=== PATIENT | female | born 1965 | race Hispanic/Latino ===

== ENCOUNTER 2019-11-21 16:36 | Emergency (ER) | payer OTHER, SELFPAY ==
--- NOTE | ~2019-11-21 | XR_ITS ---
EXAMINATION: XR chest 2V DATE: 11/21/2019 17:38 INDICATION: Cough and congestion TECHNIQUE: PA and lateral views of the chest are obtained. COMPARISON: 10/15/2016 FINDINGS: There are minimal airspace opacities of the right lung base. There is no pleural effusion o r pneumothorax. The cardiomediastinal silhouette is normal. There is mild thoracic spondylosis. IMPRESSION: 1. Minimal airspace opacities of the right lung base which could reflect atelectasis versus pneumonia . Reviewed, dictated and finalized at location A. ENT PRESSER IMPRESSION: 1. Minimal airspace opacities of the right lung base which could reflect atelec tasis versus pneumonia.
[2019-11-21 16:42] VITALS: BP 125/93; PULSE 88; RESP 17; TEMP 37.3; O2SAT 100
[2019-11-21 17:10] VITALS: PULSE 83; RESP 20
[2019-11-21] MEDS: IPRATROPIUM BR 0.02% INH SOLN 0.5 MG/2.5 ML VIAL INHALATION (17:10)
[2019-11-21] MEDS: ALBUTEROL SULFATE NEB 2.5 MG/0.5 ML INH 5 MG INHALATION (17:10)
[2019-11-21 17:25] VITALS: PULSE 88; RESP 20
--- NOTE | 2019-11-21 17:37 | ED.GENADULT ---
HPI - General Adult General Chief complaint: Upper Respiratory Infection <SAE Sarabia Last Filed: 11/21/19 19:04> Stated complaint: uri <SAE Sarabia Last Filed: 11/21/19 19:04> Time Seen by Provider: 11/21/19 16:48 <SAE Sarabia Last Filed: 11/21/19 19:04> Source: patient <SAE Sarabia Last Filed: 11/21/19 19:04> Mode of arrival: ambulatory <SAE Sarabia Last Filed: 11/21/19 19:04> Limitations: no limitations <Kevin Montoya PA-C - Last Filed: 11/21/19 19:04> History of Present Illness HPI narrative: Patient is a 54-year-old female who presents to emergency department for evaluation of upper respiratory symptoms noting that she has had congestion rhinorrhea and cough for over a week but last night began to have worsening symptoms with fever chills body aches. Patient notes she has had a couple episode episodes of emesis. Patient denies any diarrhea. Patient has taken [id number] medications with minimal improvement. Patient also notes subjective fever with chills and sweats <SAE Sarabia Last Filed: 11/21/19 19:04> Related Data Allergies/adverse reactions: Allergies Allergy/AdvReac Type Severity Reaction Status Date / Time No Known Allergies Allergy Unknown Verified 02/25/17 06:30 <SAE Sarabia Last Filed: 11/21/19 19:04> Review of Systems Review of Systems: All systems reviewed & are unremarkable except as noted in HPI and below <Kevin Montoya PA-C - Last Filed: 11/21/19 19:04> PMFSH Social History Social History: Social History Gender identity (if verbalized by the patient): Female <SAE Sarabia Last Filed: 11/21/19 19:04> Exam Narrative: Exam Narrative: GENERAL: Ill-appearing, well-nourished, and in no acute distress. HEAD: Normocephalic, atraumatic. EYES: PERRLA and EOMI. ENT: Nares clear, no rhinorrhea or epistaxis. Mucous membranes moist. Oropharynx without tonsillar hypertrophy exudate or other lesions. Bilateral TMs pearly avalos nonbulging NECK: Supple. No adenopathy or masses. No carotid bruits or JVD CHEST: Clear to auscultation. No respiratory distress. No wheezes rales or rhonchi HEART: Regular rate and rhythm. No murmur heard. SKIN: Warm, dry, no rash. NEURO: No focal deficits. Alert and oriented x3. PSYCH: Normal mood and affect. <Kevin Montoya PA-C - Last Filed: 11/21/19 19:04> Course Course Emergency Course: Patient aware of case findings treatment plan and diagnosis in the room in no distress hydrated and given breathing treatment in the emergency department <Kevin Montoya PA-C - Last Filed: 11/21/19 19:04> Vital Signs Vital signs: Vital Signs Temperature 99.2 F 11/21/19 16:42 Pulse Rate 88 11/21/19 16:42 Respiratory Rate 17 11/21/19 16:42 Blood Pressure 125/93 H 11/21/19 16:42 Pulse Oximetry 100 11/21/19 16:42 Temperature 99.2 F 11/21/19 16:42 Pulse Rate 86 11/21/19 19:12 Respiratory Rate 19 11/21/19 19:12 Blood Pressure 122/78 11/21/19 19:12 Pulse Oximetry 98 11/21/19 19:12 <Kevin Montoya PA-C - Last Filed: 11/21/19 19:04> Vital Signs Temperature 99.2 F 11/21/19 16:42 Pulse Rate 88 11/21/19 16:42 Respiratory Rate 17 11/21/19 16:42 Blood Pressure 125/93 H 11/21/19 16:42 Pulse Oximetry 100 11/21/19 16:42 Temperature 99.2 F 11/21/19 16:42 Pulse Rate 86 11/21/19 19:12 Respiratory Rate 19 11/21/19 19:12 Blood Pressure 122/78 11/21/19 19:12 Pulse Oximetry 98 11/21/19 19:12 <Tracy Rodriguez MD - Last Filed: 11/21/19 23:54> Medical Decision Making MDM Narrative Medical decision making narrative: Patient in the room was given updraft treatment with fluids feeling much better at this time afebrile nontoxic-appearing without emesis agreeing to follow-up with primary care felt appropriate for outpatient reev
[2019-11-21] MEDS: SODIUM CHLORIDE 0.9% IV 1,000 ML 999 ML IV CONT (17:52)
[2019-11-21 18:23] LABS: Basophils Percent Auto 0.4 % (0.2-1.2); Eosinophils Absolute Auto 0.1 K/mm3 (0-0.3); Eosinophils Percent Auto 1.4 % (0-4.4); Hematocrit 39.6 % (37.0-47.0); Hemoglobin 12.9 g/dL (12.0-15.0); Immature Granulocyte Absolute 0.02 K/mm3 (0.00-0.031); Immature Granulocyte Percent A 0.2 % (0-0.5); Lymphocytes Absolute Auto 1.71 K/mm3 (0.9-3.2); Lymphocytes Percent Auto 18.2 % (18.3-44.2); Mean Corpuscular HGB Conc 32.6 g/dl (32-36); Mean Corpuscular Hemoglobin 29.9 pg (26-34); Mean Corpuscular Volume 91.7 fl (80-100); Mean Platelet Volume 11.8 fl (7.4-10.4); Monocytes Absolute Auto 1.2 K/mm3 (0.1-0.6); Monocytes Percent Auto 12.5 % (2.6-8.5); Neutrophils Absolute Auto 6.3 K/mm3 (1.3-6.7); Neutrophils Percent Auto 67.3 % (45.5-73.1); Platelet Count Result 203 k/mm3 (150-375); Red Blood Count 4.32 M/mm3 (4.2-5.4); Red Cell Distribution Width 13.1 % (11.5-14.5); White Blood Count 9.4 K/mm3 (4.5-10.0)
[2019-11-21] MEDS: IBUPROFEN IV 800 MG/200 ML 800 MG/200 ML BAG 400 MG IVPB (18:31)
[2019-11-21 18:34] LABS: Blood Urea Nitrogen 17 mg/dL (7-17); Calcium 9.3 mg/dL (8.4-10.2); Carbon Dioxide 20 mmol/L (22-30); Chloride 103 mmol/L (98-107); Estimated CRCL calculation 63 ml/min; Estimated Glomerular Filt Rate > 60; Glucose 134 mg/dL (65-105); Potassium 3.4 mmol/L (3.4-5.0); Sodium 137 mmol/L (137-145)
[2019-11-21 18:47] VITALS: BP 121/72; PULSE 74; RESP 15; O2SAT 98
[2019-11-21 19:12] VITALS: BP 122/78; PULSE 86; RESP 19; O2SAT 98
--- NOTE | 2019-11-28 14:53 | PC.NURSE ---
IV Ibuprofen stop time 1899 on 11/21/2019 IV NS stop time 1914 on 11/21/2019 -Konrad Jones RN
== END 2019-11-21 19:13 | disposition home or self-care (01) ==
PROVIDERS: Emergency Medicine Emergency Medical Services; Emergency Provider General Practice
DX: J10.1 Influenza due to other identified influenza virus with other respiratory manifestations (principal); R91.8 Other nonspecific abnormal finding of lung field
CPT/HCPCS: 36415; 71046; 80048; 85025; 87804; 94640; 96361; 96365; 96375; 99284; J0131; J1741; J7030

== ENCOUNTER 2020-02-13 18:57 | Emergency (ER) | payer OTHER, SELFPAY ==
--- NOTE | ~2020-02-13 | XR_ITS ---
EXAMINATION: XR wrist RT min 3V EXAM DATE: 02/13/2020 19:40 INDICATION: Dog bite, right wrist pain. TECHNIQUE: Right wrist frontal, frontal with ulnar deviation, oblique and lateral projections obtain ed and reviewed. There is no prior study for comparison. FINDINGS: Right wrist scapholunate joint space is maintained. There are no acute fractures or disloca tions identified. There is no subcutaneous gas. The soft tissue is unremarkable. There are no rad iopaque foreign bodies. IMPRESSION: No acute osseous findings. Reviewed, dictated and finalized at location G. IMPRESSION: No acute osseous findings.
[2020-02-13 19:04] VITALS: BP 139/84; PULSE 89; RESP 18; TEMP 37.1; O2SAT 97
--- NOTE | 2020-02-13 19:09 | ED.GENADULT ---
HPI - General Adult General Chief complaint: Animal Bite Stated complaint: dog bite Time Seen by Provider: 02/13/20 19:02 Source: patient Mode of arrival: ambulatory Limitations: no limitations History of Present Illness HPI narrative: Patient is a 54-year-old female who presents for evaluation of dog bite. Bite occurred approximately 30 minutes ago, was her friend's dog. Patient states she was suddenly bit by the dog after they were playing. The dog is otherwise been acting normally and is up-to-date on its vaccinations. Patient is not up-to-date on her tetanus. She reports pain in her right wrist that radiates up into her arm. It is dull and aching in nature. Minimal pain with movement. No pain in the fingers. No current bleeding. Patient is right-hand dominant. Related Data Allergies Allergy/AdvReac Type Severity Reaction Status Date / Time No Known Allergies Allergy Unknown Verified 02/13/20 19:05 Review of Systems Review of Systems: Narrative: CONSTITUTIONAL: Denies fever, chills, or sweats. CARDIOVASCULAR: Denies chest pain RESPIRATORY: Denies cough GASTROINTESTINAL: Denies abdominal pain SKIN: Denies rash MUSCULOSKELETAL: Reports right wrist pain NEUROLOGIC: Denies numbness PMFSH Past Medical History Medical History (Updated 02/13/20 @ 19:13 by Myra Hennessy MD) Hyperlipidemia Hypertension Surgical History Surgical History (Updated 02/13/20 @ 19:11 by Myra Hennessy MD) H/O section Social History Social History Gender identity (if verbalized by the patient): Female Exam Narrative: Exam Narrative: GENERAL: Awake, alert, conversant HEAD: Normocephalic, atraumatic. EYES: PERRLA and EOMI. ENT: Nares clear, no rhinorrhea or epistaxis. Mucous membranes moist. NECK: Supple. CHEST: No respiratory distress, breathing even and non labored HEART: Regular rate, sinus rhythm ABDOMEN:Non distended, non tender EXTREMITIES: Normal range of motion of the right wrist. Minimal tenderness to the medial malleolus of the right wrist without deformity. There is a small puncture wound without any active bleeding. No foreign body identified. Radial pulses 2+. Intact sensation median, ulnar, radial nerve distribution. Interossei strength is 5 out of 5 in the right hand. Full range of motion at the right shoulder, right elbow. No streaking erythema or evidence of cellulitis. SKIN: Warm, dry, no rash. NEURO:No focal deficits. Alert and oriented x3 Course Vital Signs Vital signs: Vital Signs Temperature 37.1 C 02/13/20 19:04 Pulse Rate 89 02/13/20 19:04 Respiratory Rate 18 02/13/20 19:04 Blood Pressure 139/84 02/13/20 19:04 Pulse Oximetry 97 02/13/20 19:04 Temperature 37.1 C 02/13/20 19:04 Pulse Rate 89 02/13/20 19:04 Respiratory Rate 18 02/13/20 19:04 Blood Pressure 139/84 02/13/20 19:04 Pulse Oximetry 97 02/13/20 19:04 Medical Decision Making MDM Narrative Medical decision making narrative: Patient presented with dog puncture wound to right wrist. No through and through laceration. No gaping deformities. No fracture in the wrist. Dog is vaccinated per patient, a domestic dog, thus low risk for rabies, no immunoglobulin is recommended and thus was not administered. Patient's tetanus was updated. She was discharged home on antibiotic, given wound discharge instructions. A bite number was filed with the [facility]. Medical Records Medical records reviewed: Yes I reviewed the patient's medical records. Vital Signs Vital Signs: Vital Signs Temperature 37.1 C 02/13/20 19:04 Pulse Rate 89 02/13/20 19:04 Respiratory Rate 18 02/13/20 19:04 Blood Pressure 139/84 02/13/20 19:04 Pulse Oximetry 97 02/13/20 19:04 Temperature 37.1 C 02/13/20 19:04 Pulse Rate 89 02/13/20 19:04 Respiratory Rate 18 02/13/20 19:04 Blood Pressure 139/84 02/13/20 19:04 Pulse Oximetry 97 02/13/20 19:04 Imaging Data Radiologist's impres
[2020-02-13] MEDS: ACETAMINOPHEN 500 MG TABLET 1000 MG PO (19:34)
[2020-02-13] MEDS: TETANUS,DIPHTHERIA,AC PERTUSSIS ADULT (0.5 ML) BOOSTRIX IM (19:34)
[2020-02-13] MEDS: IBUPROFEN 400 MG TABLET PO (19:35)
[2020-02-13 20:07] VITALS: BP 132/81; PULSE 79; RESP 18; O2SAT 98
== END 2020-02-13 20:08 | disposition home or self-care (01) ==
PROVIDERS: Emergency Provider Emergency Medicine
DX: S61.551A Open bite of right wrist, initial encounter (principal); E78.5 Hyperlipidemia, unspecified; I10 Essential (primary) hypertension; W54.0XXA Bitten by dog, initial encounter; Z23 Encounter for immunization
CPT/HCPCS: 73110; 90471; 90715; 99283; A9270

== ENCOUNTER 2021-04-24 13:51 | Outpatient (CLI) | payer OTHER, SELFPAY ==
--- NOTE | ~2021-04-24 | XR_ITS ---
EXAMINATION: XR knee RT min 4V DATE: 04/24/2021 14:24 INDICATION: Right knee pain TECHNIQUE: Four views of the right knee were obtained. COMPARISON: None. FINDINGS: Alignment is normal. No fracture or osteochondral lesion. There is moderate tricompartmenta l osteoarthritis. A small knee joint effusion is present. Soft tissues are unremarkable. IMPRESSION: 1. No acute osseous abnormality. Reviewed, dictated and finalized at location B.
--- NOTE | ~2021-04-24 | XR_ITS ---
XR chest 2V DATE: 04/24/2021 14:23 INDICATION: Cough TECHNIQUE: PA and lateral views COMPARISON: None FINDINGS: Heart size is within upper limits of normal. There is mild aortic arch calcification. No hi lar or mediastinal enlargement. No pulmonary infiltrate or consolidation, pleural effusion or pulmona ry vascular congestion or pneumothorax. Included skeletal structures are unremarkable. IMPRESSION: No active pulmonary disease Reviewed, dictated and finalized at location A. IMPRESSION: No active pulmonary disease
--- NOTE | ~2021-04-24 | XR_ITS ---
EXAMINATION: XR knee LT min 4V DATE: 04/24/2021 14:24 INDICATION: Left knee pain TECHNIQUE: Four views of the left knee were obtained. COMPARISON: None. FINDINGS: Alignment is normal. No fracture or osteochondral lesion. There is mild tricompartment oste oarthritis. No joint effusion is identified. A cortically based area of sclerosis in the distal femur has smooth margins and is consistent with a benign finding. Soft tissues are unremarkable. IMPRESSION: 1. Osteoarthritis without acute osseous findings. Reviewed, dictated and finalized at location B.
== END 2021-04-24 13:52 | disposition home or self-care (01) ==
LOC: ANHIMG 13:56
PROVIDERS: PCP Internal Medicine Gastroenterology; Visit Provider Internal Medicine Gastroenterology
DX: R05 Cough (principal); M25.569 Pain in unspecified knee; M17.12 Unilateral primary osteoarthritis, left knee
CPT/HCPCS: 71046; 73564

== ENCOUNTER 2021-05-15 08:29 | Emergency (ER) | payer OTHER, SELFPAY ==
--- NOTE | ~2021-05-15 | XR_ITS ---
XR lumbar spine min 4V DATE: 05/15/2021 09:39 INDICATION: Right low back pain after sweeping, mopping. TECHNIQUE: AP, lateral, bilateral oblique views and coned lateral lumbosacral view COMPARISON: None FINDINGS: There is degenerative change at the apophyseal joints at L4-5 and L5-S1 in particular, with associated 8-9 mm grade 1 anterolisthesis at L4-5. No fracture or bone destruction is evident. The lumbar pedicles are intact. There is mild levoscoliosis of the lumbar spine. There is mild degenerative spurring of the lumbar ve rtebral bodies. No spondylolysis or spondylolisthesis. The sacroiliac joints and pubic symphysis are intact. There is mild symmetric narrowing at both hip joints. IMPRESSION: Grade 1 anterolisthesis at L4-5 due to degenerative change at the apophyseal joints Reviewed, dictated and finalized at location A. IMPRESSION: Grade 1 anterolisthesis at L4-5 due to degenerative change at the a pophyseal joints
[2021-05-15 08:48] VITALS: BP 129/73; PULSE 60; RESP 18; TEMP 37.1; O2SAT 99
[2021-05-15] MEDS: KETOROLAC (*BKC) 60 MG/2 ML VIAL IM (09:46)
[2021-05-15] MEDS: LIDOCAINE 5% PATCH 1 PATCH TRANSDERM (09:47)
[2021-05-15] MEDS: METAXALONE 800 MG TABLET PO (09:47)
[2021-05-15 10:12] LABS: Add Urine Microscopic? NO; Appearance Urine Clear (Clear); Bilirubin Urine Negative (Negative); Blood Urine Negative (Negative); Color Urine Yellow (Yellow); Glucose Urine UA Negative (Negative); Ketones Urine Negative (Negative); Leukocyte Esterase Ur Negative LEU/UL (Negative); Nitrate Urine Negative (Negative); Protein Urine Negative (Negative); Specific Grav Ur 1.023 (1.001-1.035); Urobilinogen Urine Negative mg/dL (<2.0)
[2021-05-15 10:47] VITALS: BP 106/65; PULSE 46; RESP 16; O2SAT 98
--- NOTE | 2021-05-15 10:57 | ED.GENADULT ---
HPI - General Adult General Chief complaint: Back Pain/Injury Stated complaint: low back pain Time Seen by Provider: 05/15/21 09:10 Source: patient and RN notes reviewed Mode of arrival: ambulatory Limitations: no limitations History of Present Illness HPI narrative: Patient is a 55-year-old female who presents to emergency department for evaluation of low back pain worse over the last several days notes history of chronic low back pain taking ibuprofen with minimal improvement. Patient denies injury or trauma or illness pain sometimes radiates into the right groin. Patient denies any bowel habit changes dysuria or URI symptoms. Patient appears uncomfortable but not distressed upon arrival Related Data Home Medications Medication Instructions Recorded Confirmed albuterol sulfate 90 mcg/actuation 1 puff INHALATION Q4-6H PRN g 04/19/21 04/19/21 aerosol inhaler erenumab-aooe 70 mg/mL 70 mg SUBCUT MONTHLY PRN 04/19/21 04/19/21 subcutaneous auto-injector gabapentin 800 mg tablet See Rx Instructions PO DAILY 04/19/21 04/19/21 lisinopril 20 mg tablet 20 mg PO DAILY 04/19/21 04/19/21 omeprazole 40 mg capsule,delayed 40 mg PO DAILY 04/19/21 04/19/21 release pravastatin 40 mg tablet 40 mg PO DAILY 04/19/21 04/19/21 sumatriptan succinate 50 mg tablet 50 mg PO ONCE PRN 04/19/21 04/19/21 topiramate 100 mg tablet 100 mg PO BID 04/19/21 04/19/21 Allergies Allergy/AdvReac Type Severity Reaction Status Date / Time No Known Allergies Allergy Verified 05/15/21 08:55 Review of Systems Review of Systems: All systems reviewed & are unremarkable except as noted in HPI and below PMFSH Past Medical History Medical History (Updated 05/15/21 @ 11:01 by Kevin Montoya PA-C) Migraine headache Social History Social History Smoking status: Never smoker Alcohol intake: never Gender identity (if verbalized by the patient): Female Exam Narrative: GENERAL: Well-appearing, well-nourished, uncomfortable and in no acute distress. HEAD: Normocephalic, atraumatic. EYES: PERRLA and EOMI. ENT: Nares clear, no rhinorrhea or epistaxis. Mucous membranes moist. NECK: Supple. No adenopathy or masses. CHEST: Clear to auscultation. No respiratory distress. No wheezes rales or rhonchi HEART: Regular rate and rhythm. No murmur heard. Normal peripheral pulses. ABDOMEN: Soft, nontender, nondistended EXTREMITIES: Normal range of motion. No edema. Tenderness across the lower lumbar spine SKIN: Warm, dry, no rash. NEURO: No focal deficits. Alert and oriented x3. Cranial nerves II through XII grossly intact. Normal speech and gait. Motor and sensory intact and symmetrical in the extremities PSYCH: Normal mood and affect. Course Course Emergency Course: Patient evaluated the emergency department no distress felt appropriate for outpatient reevaluation agreeing to follow-up as instructed or to return if symptoms worsen or concerns Vital Signs Vital signs: Vital Signs Temperature 98.8 F 05/15/21 08:48 Pulse Rate 60 05/15/21 08:48 Respiratory Rate 18 05/15/21 08:48 Blood Pressure 129/73 05/15/21 08:48 Pulse Oximetry 99 05/15/21 08:48 Temperature 98.8 F 05/15/21 08:48 Pulse Rate 46 L 05/15/21 10:47 Respiratory Rate 16 05/15/21 10:47 Blood Pressure 106/65 05/15/21 10:47 Pulse Oximetry 98 05/15/21 10:47 Medical Decision Making [facility] Narrative Medical decision making narrative: Patients pain is positional in nature and localized to back without signs of cord compression or cauda equina based on neurological exam, skeletal exam and history. No fever or other significant factors to suggest osteomyelitis or spinal epidural abscess. No symptoms or signs to suggest pain is referred from abdominal or / cardiopulmonary sources. No pulsatile masses noted on exam. Patient ambulates with steady gait and is stable for outpatient management given case fi
[2021-05-15 11:10] VITALS: BP 106/65; PULSE 56; RESP 16; O2SAT 98
== END 2021-05-15 11:10 | disposition home or self-care (01) ==
PROVIDERS: Emergency Medicine Emergency Medical Services; Emergency Provider Emergency Medicine; PCP Internal Medicine Gastroenterology
DX: M54.5 Low back pain (principal); M47.816 Spondylosis without myelopathy or radiculopathy, lumbar region
CPT/HCPCS: 72110; 81003; 96372; 99283; A9270; J1885

== ENCOUNTER 2021-06-21 12:25 | Outpatient (CLI) | payer OTHER, SELFPAY ==
--- NOTE | ~2021-06-21 | XR_ITS ---
XR shoulder RT min 2V 06/21/2021 12:50 Indication: Right shoulder pain Procedure: 5 views right shoulder Comparison: No prior studies for comparison. Findings: Normal anatomic alignment. No fracture, subluxation or dislocation. No significant soft tis nolberto abnormality. No foreign body. Impression: 1: No significant bone or joint abnormality. Reviewed, dictated and finalized at location A. Impression: 1: No significant bone or joint abnormality.
== END 2021-06-21 12:26 | disposition home or self-care (01) ==
LOC: ANHIMG 12:35
PROVIDERS: PCP Internal Medicine Gastroenterology; Visit Provider Internal Medicine Gastroenterology
DX: M25.511 Pain in right shoulder (principal)
CPT/HCPCS: 73030

== ENCOUNTER 2022-06-18 09:45 | Emergency (ER) | payer OTHER, SELFPAY ==
[2022-06-18] VITALS (9 sets, daily range): BP systolic 114–140; BP diastolic 64–77; PULSE 63–78; RESP 15–20; O2SAT 98–100
--- NOTE | ~2022-06-18 | CT_ITS ---
EXAMINATION: CT abdomen pelvis w con DATE: 06/18/2022 12:16 INDICATION: Left lower quadrant abdominal pain. TECHNIQUE: Computed tomography (CT) of the abdomen and pelvis was performed with 100 mL Omnipaque 350 intravenous contrast. Automated exposure control and iterative reconstruction technique were employe d. The dose-length product was 484.31 mGy-cm. COMPARISON: None. FINDINGS: The visualized portions of the lung bases demonstrate mild atelectasis. No pleural effusion . The heart size is normal. No pericardial effusion. The liver, gallbladder, spleen, pancreas, adrena l glands, and right kidney are normal. There is cortical thinning of left kidney. There are scattered diverticula in the colon. There is fat stranding around a sigmoid diverticulum with bowel wall thick ening, consistent with diverticulitis. There are no dilated loops of bowel. The appendix is normal. T here are no pathologically enlarged lymph nodes. There is no free intraperitoneal fluid. There is mod erate lumbar spondylosis. IMPRESSION: 1. Sigmoid diverticulitis. No perforation or abscess. Reviewed, dictated and finalized at location A.
--- NOTE | ~2022-06-18 | XR_ITS ---
EXAMINATION: XR chest 2V DATE: 06/18/2022 12:23 INDICATION: Left lower quadrant abdominal pain. Nausea and vomiting. TECHNIQUE: Frontal and lateral views of the chest were obtained. COMPARISON: Chest 2 views 04/24/2021 FINDINGS: The chest demonstrates clear lungs without pneumonia, pleural effusion, or pneumothorax. Th e heart size is normal. IMPRESSION: 1. No acute cardiopulmonary disease. Reviewed, dictated and finalized at location A.
[2022-06-18 09:56] LABS: Basophils Absolute Auto 0.1 K/mm3 (0.0-0.1); Basophils Percent Auto 0.4 % (0.2-1.2); Eosinophils Absolute Auto 0.1 K/mm3 (0-0.3); Hematocrit 40.2 % (37.0-47.0); Hemoglobin 13.6 g/dL (12.0-15.0); Immature Granulocyte Absolute 0.04 K/mm3 (0.00-0.031); Immature Granulocyte Percent A 0.3 % (0-0.5); Lymphocytes Absolute Auto 2.31 K/mm3 (0.9-3.2); Lymphocytes Percent Auto 19.4 % (18.3-44.2); Mean Corpuscular HGB Conc 33.8 g/dl (32-36); Mean Corpuscular Hemoglobin 30.6 pg (26-34); Mean Corpuscular Volume 90.5 fl (80-100); Mean Platelet Volume 10.7 fl (7.4-10.4); Monocytes Absolute Auto 1.2 K/mm3 (0.1-0.6); Neutrophils Absolute Auto 8.2 K/mm3 (1.3-6.7); Neutrophils Percent Auto 68.9 % (45.5-73.1); Platelet Count Result 212 k/mm3 (150-375); Red Blood Count 4.44 M/mm3 (4.2-5.4); Red Cell Distribution Width 12.6 % (11.5-14.5); White Blood Count 11.9 K/mm3 (4.5-10.0)
--- NOTE | 2022-06-18 09:59 | ED.ABDPAIN ---
HPI - Abdominal Pain General Chief Complaint: Abdominal Pain Stated Complaint: left abd pain Time Seen by Provider: 06/18/22 09:58 Source: patient Mode of arrival: ambulatory Limitations: clinical condition History of Present Illness HPI narrative: The patient is a 56-year-old female with a history of HTN, HLD, presenting for evaluation of left lower quadrant abdominal pain. Pain has been present and worsening over the past 72 hours. Described as sharp, cramping in nature with radiation to the flank. She reports associated frequency of urination but denies dysuria or hematuria. She reports subjective fever, chills. She reports nausea as well as one episode of nonbilious, nonbloody emesis. Patient denies any upper abdominal pain. She denies vaginal discharge or bleeding. Patient denies history of this in the past. Related Data Home Medications Medication Instructions Recorded Confirmed albuterol sulfate 90 mcg/actuation 1 puff inhalation Q4-6H PRN 04/19/21 04/19/21 aerosol inhaler Shortness Of Breath erenumab-aooe 70 mg/mL 70 mg subcut MONTHLY PRN Headache 04/19/21 04/19/21 subcutaneous auto-injector ([employer]imovig Autoinjector) gabapentin 800 mg tablet See Rx Instructions PO DAILY 04/19/21 04/19/21 lisinopril 20 mg tablet 20 mg PO DAILY 04/19/21 04/19/21 omeprazole 40 mg capsule,delayed 40 mg PO DAILY 04/19/21 04/19/21 release pravastatin 40 mg tablet 40 mg PO DAILY 04/19/21 04/19/21 sumatriptan succinate 50 mg tablet 50 mg PO ONCE PRN Headache 04/19/21 04/19/21 topiramate 100 mg tablet 100 mg PO BID 04/19/21 04/19/21 Allergies Allergy/AdvReac Type Severity Reaction Status Date / Time No Known Allergies Allergy Verified 06/18/22 09:48 Review of Systems Review of Systems: CONSTITUTIONAL: Denies fever, chills, or sweats. EYES: Denies visual changes, redness, or discharge. ENT: Denies rhinorrhea, congestion, sore throat, or otalgia. CARDIOVASCULAR: Denies chest pain, palpitations, or edema. RESPIRATORY: Denies cough or dyspnea. GASTROINTESTINAL: Denies left lower quadrant abdominal pain and left flank pain GENITOURINARY: Denies dysuria or hematuria. SKIN: Denies rash or itching. MUSCULOSKELETAL: Denies back pain, joint pain, or myalgia. NEUROLOGIC: Denies headache, numbness, or weakness. FORMERLY [facility], [facility]–1983 Past Medical History Medical History (Updated 06/18/22 @ 12:40 by Myra Hennessy MD) Migraine headache Social History Social History Smoking status: Never smoker Alcohol intake: never Gender identity (if verbalized by the patient): Female Exam Narrative: GENERAL: Awake, alert, conversant HEAD: Normocephalic, atraumatic. EYES: PERRLA and EOMI. ENT: Nares clear, no rhinorrhea or epistaxis. Mucous membranes moist. NECK: Supple. CHEST: No respiratory distress, breathing even and non labored HEART: Regular rate, sinus rhythm ABDOMEN:Non distended, left lower quadrant pain on exam, positive guarding, no rebound or rigidity, positive left flank tenderness EXTREMITIES: Normal range of motion. No edema. SKIN: Warm, dry, no rash. NEURO:No focal deficits. Alert and oriented x3 Course Vital Signs Vital signs: Vital Signs Pulse Rate 63 06/18/22 09:46 Respiratory Rate 15 06/18/22 09:46 Blood Pressure 115/77 06/18/22 09:46 Pulse Oximetry 99 06/18/22 09:46 Oxygen Delivery Room Air 06/18/22 09:46 Pulse Rate 65 06/18/22 12:04 Respiratory Rate 18 06/18/22 12:04 Blood Pressure 140/71 06/18/22 12:04 Pulse Oximetry 99 06/18/22 12:04 Oxygen Delivery Room Air 06/18/22 09:46 MDM - Abdominal Pain MDM Narrative Medical decision making narrative: Patient presented for evaluation of left lower quadrant abdominal pain. At the time of assessment, ABCs are intact and vital signs are stable. Patient does have focal left lower quadrant pain on exam as well as some left flank tenderness. Differential includes pyelon
[2022-06-18 10:08] LABS: Alanine Aminotransferase 23 U/L (6-35); Albumin Level 4.6 g/dL (3.5-5.1); Alkaline Phosphatase 67 U/L (38-126); Anion Gap 12 mmol/L (8-16); Aspartate Amino Transferase 25 U/L (14-36); Bilirubin,Total 0.5 mg/dL (0.2-1.3); Blood Urea Nitrogen 14 mg/dL (7-17); Calcium 9.7 mg/dL (8.4-10.2); Carbon Dioxide 29 mmol/L (22-30); Chloride 98 mmol/L (98-107); Estimated CRCL calculation 81 ml/min; Estimated Glomerular Filt Rate > 60; Glucose 126 mg/dL (65-110); Lipase 97 U/L (23-300); Potassium 3.3 mmol/L (3.4-5.0); Sodium 139 mmol/L (137-145)
[2022-06-18 10:35] LABS: Add Urine Microscopic? NO; Appearance Urine Clear (Clear); Bilirubin Urine Negative (Negative); Blood Urine Negative (Negative); Color Urine Straw (Yellow); Glucose Urine UA Negative (Negative); Ketones Urine Negative (Negative); Leukocyte Esterase Ur Negative LEU/UL (Negative); Nitrate Urine Negative (Negative); Protein Urine Negative (Negative); Specific Grav Ur 1.012 (1.001-1.035); Urobilinogen Urine Negative mg/dL (<2.0)
--- NOTE | 2022-06-18 11:11 | ECG_ITS ---
Measurements Intervals [place] Rate: 51 P: 47 ME: 174 QRS: 24 QRSD: 104 T: 14 QT: 447 QTc: 414 Interpretive Statements SINUS BRADYCARDIA BORDERLINE T WAVE ABNORMALITY- ANT/INF LEADS BORDERLINE ECG NO PREVIOUS ECG AVAILABLE FOR COMPARISON Electronically Signed On 06-18-2022 14:26:33 CDT by Jonnie Oliva D.O.
[2022-06-18 11:58] LABS: Troponin I < 0.012 ng/mL (0.000-0.034)
[2022-06-18] MEDS: SODIUM CHLORIDE 0.9% IV 1,000 ML 999 ML IV CONT (11:59)
[2022-06-18] MEDS: MORPHINE SULFATE (*CRX) 4 MG/ML INJ IV PUSH (12:00)
[2022-06-18] MEDS: ONDANSETRON INJ 4 MG/2 ML VIAL IV PUSH (12:00)
[2022-06-18] MEDS: metroNIDAZOLE 500 MG/ISO 100ML 500 MG/100 ML BAG 100 MG IVPB (12:46)
[2022-06-18] MEDS: CIPROFLOXACIN 400 MG/D5W 200ML 200 ML 200 MG IVPB (13:42)
== END 2022-06-18 14:47 | disposition home or self-care (01) ==
PROVIDERS: Emergency Provider Emergency Medicine; PCP Internal Medicine Gastroenterology
DX: K57.32 Diverticulitis of large intestine without perforation or abscess without bleeding (principal); R00.1 Bradycardia, unspecified
CPT/HCPCS: 36415; 71046; 74177; 80053; 81003; 81025; 83690; 84484; 85025; 93005; 96365; 96367; 96375; 99284; J0131; J0744; J2270; J2405; J7030; Q9967

== ENCOUNTER 2023-03-18 22:42 | Observation (INO) | payer OTHER, SELFPAY ==
--- NOTE | ~2023-03-18 | CT_ITS ---
EXAMINATION: CT abdomen pelvis w con DATE: 03/19/2023 01:38 INDICATION: Generalized abdominal pain TECHNIQUE: Computed tomography (CT) of the abdomen and pelvis was performed with 100 cc Omnipaque 350 intravenous contrast. The dose-length product was 602.39 mGy-cm. Automated exposure control and iter ative reconstruction technique were employed. COMPARISON: CT dated 06/18/2022. FINDINGS: Dependent atelectasis. Cardiomegaly. No significant pleural or pericardial effusion. Fatty infiltration of the liver. Moderate gas throughout the colon. Colonic diverticulosis without definite acute diverticulitis. No obstructing mass identified. No significant small bowel dilation. No free a ir or free fluid. Mild atherosclerosis without aneurysm. No lymphadenopathy. Normal appendix. Fatty infiltration of the liver. The spleen, pancreas, adrenal glands are unremarkable. Small subcentimeter hypodensity densit ies of the kidneys, most likely benign. Gallbladder is present. No free air or free fluid. Status pos t hysterectomy. There is a urachal remnant of the bladder. Moderate lumbar spondylosis with grade 1 s pondylolisthesis at L4-5. IMPRESSION: 1. Moderate gaseous distention of the colon without transition site or obstructing mass, likely ileus . 2: Cardiomegaly. Reviewed, dictated and finalized at location L. IMPRESSION: 1. Moderate gaseous distention of the colon without transition site or obstruct ing mass, likely ileus. 2: Cardiomegaly.
[2023-03-18 22:44] VITALS: BP 187/96; PULSE 112; RESP 23; TEMP 36.4; O2SAT 100
[2023-03-18 23:13] LABS: Basophils Absolute Auto 0.1 K/mm3 (0.0-0.1); Basophils Percent Auto 0.4 % (0.2-1.2); Eosinophils Absolute Auto 0.3 K/mm3 (0-0.3); Eosinophils Percent Auto 2.2 % (0-4.4); Hematocrit 42.4 % (37.0-47.0); Hemoglobin 14.2 g/dL (12.0-15.0); Immature Granulocyte Absolute 0.05 K/mm3 (0.00-0.031); Immature Granulocyte Percent A 0.4 % (0-0.5); Lymphocytes Percent Auto 34.5 % (18.3-44.2); Mean Corpuscular HGB Conc 33.5 g/dl (32-36); Mean Corpuscular Hemoglobin 30.3 pg (26-34); Mean Corpuscular Volume 90.4 fl (80-100); Mean Platelet Volume 10.9 fl (7.4-10.4); Monocytes Absolute Auto 1.4 K/mm3 (0.1-0.6); Monocytes Percent Auto 10.3 % (2.6-8.5); Neutrophils Absolute Auto 7.3 K/mm3 (1.3-6.7); Neutrophils Percent Auto 52.2 % (45.5-73.1); Platelet Count Result 227 k/mm3 (150-375); Red Blood Count 4.69 M/mm3 (4.2-5.4); Red Cell Distribution Width 12.8 % (11.5-14.5); White Blood Count 13.9 K/mm3 (4.5-10.0)
[2023-03-18 23:27] LABS: Appearance Urine Clear (Clear); Bacteria Urine None Seen /hpf; Bilirubin Urine Negative (Negative); Blood Urine Trace (Negative); Color Urine Yellow (Yellow); Glucose Urine UA Negative (Negative); Ketones Urine Negative (Negative); Leukocyte Esterase Ur Negative LEU/UL (Negative); Nitrate Urine Negative (Negative); Non Pathogenic Casts 0-2; Protein Urine Trace mg/dL (Negative); Specific Grav Ur 1.034 (1.001-1.035); Squamous Epithelial Cell Urine Occasional /hpf (Few); WBC Urine 0-5 /hpf
[2023-03-18 23:28] LABS: Add Urine Microscopic? YES
[2023-03-18 23:49] LABS: Alanine Aminotransferase 29 U/L (6-35); Albumin Level 4.5 g/dL (3.5-5.1); Alkaline Phosphatase 68 U/L (38-126); Anion Gap 8 mmol/L (8-16); Aspartate Amino Transferase 31 U/L (14-36); Bilirubin,Total 0.4 mg/dL (0.2-1.3); Blood Urea Nitrogen 18 mg/dL (7-17); Calcium 9.2 mg/dL (8.4-10.2); Carbon Dioxide 30 mmol/L (22-30); Chloride 100 mmol/L (98-107); Estimated CRCL calculation 69 ml/min; Estimated Glomerular Filt Rate > 60; Glucose 130 mg/dL (65-110); Lipase 99 U/L (23-300); Potassium 3.7 mmol/L (3.4-5.0); Sodium 138 mmol/L (137-145)
[2023-03-19] VITALS (8 sets, daily range): BP systolic 114–155; BP diastolic 56–79; PULSE 54–76; RESP 16–24; TEMP 36.3–36.8; O2SAT 96–100; BMI 31.1
--- NOTE | 2023-03-19 00:18 | PC.NURSE ---
Pt restless on stretcher, actively vomiting, with c/o generalized abd pain. CT Juarez notified.
[2023-03-19] MEDS: ONDANSETRON INJ 4 MG/2 ML VIAL IV PUSH (00:25)
[2023-03-19] MEDS: MORPHINE SULFATE (*CRX) 4 MG/ML INJ IV PUSH (00:25)
--- NOTE | 2023-03-19 00:37 | ED.ABDPAIN ---
HPI - Abdominal Pain General Chief Complaint: Abdominal Pain Stated Complaint: abd pain Time Seen by Provider: 03/18/23 23:59 History of Present Illness HPI narrative: 57-year-old female with a history of hypertension and hyperlipidemia reports for evaluation of generalized abdominal pain that started 10 hours ago. Pt reports with her daughter who translates and assists with history. Pt ate red meat and beans 3 hours prior to the onset of symptoms. She reports the abdominal pain is sharp, intermittent and generalized. She reports having multiple episodes of diarrhea with blood on the toilet paper when she wipes, nausea, and multiple episodes of emesis with bright red blood. She is also complaining of low back pain since the onset of symptoms. Past abdominal surgeries include c section multiple years ago. She denies fever, body aches, chest pain, SOB, cough, congestion, urinary complaints. Related Data Home Medications Medication Instructions Recorded Confirmed erenumab-aooe 140 mg/mL 140 mg subcut MONTHLY 01/23/21 subcutaneous auto-injector (Aimovig Autoinjector) gabapentin 800 mg tablet 1,600 mg PO DAILY 01/23/21 lisinopril 20 1 tablet PO DAILY 01/23/21 mg-hydrochlorothiazide 25 mg tablet omeprazole 40 mg capsule,delayed 40 mg PO DAILY 01/23/21 release pravastatin 40 mg tablet 40 mg PO DAILY 01/23/21 sumatriptan succinate 50 mg tablet See Rx Instructions PO .COMPLEX 01/23/21 topiramate 100 mg tablet 100 mg PO BID 01/23/21 albuterol sulfate 90 mcg/actuation 1 puff inhalation Q4-6H PRN 04/19/21 03/19/23 aerosol inhaler Shortness Of Breath gabapentin 800 mg tablet 800 mg PO BID 04/19/21 03/19/23 lisinopril 20 mg tablet 20 mg PO DAILY 04/19/21 03/19/23 omeprazole 40 mg capsule,delayed 40 mg PO DAILY 04/19/21 03/19/23 release pravastatin 40 mg tablet 40 mg PO HS 04/19/21 03/19/23 sumatriptan succinate 50 mg tablet 50 mg PO ONCE PRN Headache 04/19/21 03/19/23 topiramate 100 mg tablet 100 mg PO BID 04/19/21 03/19/23 hydrochlorothiazide 25 mg tablet 25 mg PO DAILY 03/19/23 03/19/23 tramadol 50 mg tablet 50 mg PO Q6-8H PRN Pain 03/19/23 03/19/23 Allergies Allergy/AdvReac Type Severity Reaction Status Date / Time No Known Allergies Allergy Verified 03/19/23 10:39 Review of Systems Review of Systems: CONSTITUTIONAL: Denies fever, chills EYES: Denies visual changes, redness, or discharge. ENT: Denies rhinorrhea, congestion, sore throat, or otalgia. CARDIOVASCULAR: Denies chest pain, palpitations, or edema. RESPIRATORY: Denies cough or dyspnea. GASTROINTESTINAL: See HPI GENITOURINARY: Denies dysuria or hematuria. SKIN: Denies rash or itching. MUSCULOSKELETAL: See HPI NEUROLOGIC: Denies headache, numbness, dizziness, or weakness. PSYCHIATRIC: Denies anxiety or depression. [facility] Past Medical History Medical History Migraine headache Surgical History Surgical History (Updated 03/19/23 @ 10:39 by Alisa Galvan) H/O section Family History Family History (System 03/19/23 @ 10:39 by Alisa Galvan) Other Alzheimer disease Diabetes mellitus Hypertension Social History Social History (System 03/19/23 @ 10:39 by Alisa Galvan) Social History: never smoker Smoking status: Never smoker Alcohol intake: never Substance use: never Lack of Transportation: No Lack of Food: Never True Current Housing: I Have Housing Concerned About Future Housing: No Difficulty Paying Gas/Electric Bills: Decline to Answer Difficulty Paying for Meds: Decline to Answer Currently Unemployed: Decline to Answer Education: Decline to Answer Difficulty w/ Childcare or Family Care: Decline to Answer Gender identity (if verbalized by the patient): Female Spiritual care concerns: No Exam Narrative: GENERAL: Patient ill-appearing, writhing in the bed in pain. HEAD: Normocephalic EYES: PERRLA ENT: Nares clear. Muco
[2023-03-19] MEDS: PANTOPRAZOLE SODIUM IV 40 MG VIAL IV PUSH (00:51)
[2023-03-19] MEDS: SODIUM CHLORIDE 0.9% IV 1,000 ML 999 ML IV CONT ×2 (00:51→04:11)
[2023-03-19] MEDS: HYDROmorphone HCL INJ (*CRX) 1 MG/ML SYR 0.5 MG IV PUSH ×2 (01:09→03:13)
--- NOTE | 2023-03-19 01:10 | PC.NURSE ---
Pt states she has had a hysterectomy
[2023-03-19 01:15] LABS: Prothrombin Time 13.7 Seconds (11.1-14.7)
[2023-03-19 01:16] LABS: Lactic Acid Reflex 1.9 mmol/L (0.7-2.0); Partial Thromboplastin Time 26.8 SECONDS (22.3-36.8)
--- NOTE | 2023-03-19 01:23 | PC.NURSE ---
Pt to CT at this time
[2023-03-19] MEDS: ONDANSETRON INJ 4 MG/2 ML VIAL (03:13)
[2023-03-19] MEDS: PIPERACILLN/TAZ 3.375GM/NS50ML 3.375 GM/50 ML BAG IVPB ×2 (03:47→10:18)
[2023-03-19] MEDS: SODIUM CHLORIDE 0.9% IV 1,000 ML 125 ML IV CONT (05:59)
--- NOTE | 2023-03-19 06:15 | PC.NURSE ---
This patient, Morena Schmitt, was admitted to Medical Room 349-01. Patient/family oriented to hospital policies and general routines including ID bracelet, bed and alarms, visiting hours, pain management, procedures, bathroom and other care routines, personal items, smoking policy, room service/diet, and visiting hours. Information on how to activate the Rapid Response Team has been discussed. Patient/Family are encouraged to report perceived risks to care and to ask questions if they do not understand what they are told or what they should do.
[2023-03-19] MEDS: hydroCHLOROthiazide 25 MG TABLET PO (08:34)
[2023-03-19] MEDS: GABAPENTIN 400 MG CAPSULE 800 MG PO (08:34)
[2023-03-19] MEDS: LIDOCAINE 5% PATCH 1 PATCH TOPICAL (08:34)
[2023-03-19] MEDS: PANTOPRAZOLE 40 MG TABLET PO (08:35)
[2023-03-19] MEDS: TOPIRAMATE 100 MG TABLET PO (08:35)
[2023-03-19] MEDS: lisinopriL 20 MG TABLET PO (08:35)
[2023-03-19] MEDS: traMADol HCL (*CRX) 50 MG TABLET PO (08:37)
--- NOTE | 2023-03-19 13:29 | WPDGICN ---
Assessment and Plan Assessment and plan (1) Ileus: Code(s): K56.7 - Ileus, unspecified Status: Acute Assessment and Plan: Patient admitted the hospital with abdominal distention some vomiting and an abnormal x-ray with dilated loops of bowel. Radiologist feel the with no specific cut off in abdomen that most likely this is consistent with an ileus. At the time of my visiting the patient her symptoms have resolved. She has passed a bowel movement. Her abdomen is no longer distended. She no longer has tenderness nor pain. She is hungry and anxious to eat. I suspect indeed she had an ileus as suggested by radiologist. Plan to initially start with full liquid diet. Advance to a regular diet discharge if tolerated. Etiology of ileus is unclear, but may be related to food that she ate lunch yesterday. Increasing activity may be of some benefit. She was started empirically on antibiotics we may want to consider 1 week course of antibiotics after discharge. Activity up in the room will help her ileus as well. I will follow with you as long she requires being hospital. Hopefully this a very short observation. GI Consult Note Consult date/time: 03/19/23 13:29 Reason for consult: Ileus. HPI: Morena Schmitt is a 57 year old female I am asked to see at the request of the emergency room because dilated bowel loops on imaging study. patient in usual state of health till yesterday after eating lunch in the afternoon began to have significant nausea vomiting abdominal distention abdominal pain. Because this persisted she went to the emergency room. Laboratory studies revealed leukocytosis. Imaging studies revealed dilated loops bowel typically the large bowel were quite distended. Patient subsequently was given broad-spectrum antibiotics and admitted to hospital. She did not require NG tube decompression. Patient and nursing staff report that overnight she has had bowel movements. Her abdomen feels much improved. It is softer and she has no tenderness. Patient denies any fever. She denies any recent travel. The food she ate was the same as what other family members have eaten. Patient currently is comfortable without immediate complaints. History is somewhat limited as patient speaks Iraqi. She only speaks limited Malian and I speak limited Iraqi. Review of Systems Review of Systems: Review of systems noncontributory. [facility] Past Medical History Medical History Migraine headache Surgical History Surgical History (Updated 03/19/23 @ 10:39 by Alisa Galvan) H/O section Family History Family History (System 03/19/23 @ 10:39 by Alisa Galvan) Other Alzheimer disease Diabetes mellitus Hypertension Social History Social History (System 03/19/23 @ 10:39 by Alisa Galvan) Social History: never smoker Smoking status: Never smoker Alcohol intake: never Substance use: never Lack of Transportation: No Lack of Food: Never True Current Housing: I Have Housing Concerned About Future Housing: No Difficulty Paying Gas/Electric Bills: Decline to Answer Difficulty Paying for Meds: Decline to Answer Currently Unemployed: Decline to Answer Education: Decline to Answer Difficulty w/ Childcare or Family Care: Decline to Answer Gender identity (if verbalized by the patient): Female Spiritual care concerns: No Meds Home Medications and Allergies Home Medications Medication Instructions Recorded Confirmed Type albuterol sulfate 90 mcg/actuation 2 puff inhalation QID PRN 11/21/19 Rx aerosol inhaler shortness of breath or wheezing #6.7 grams erenumab-aooe 140 mg/mL 140 mg subcut MONTHLY 01/23/21 History subcutaneous auto-injector (Aimovig Autoinjector) gabapentin 800 mg tablet 1,600 mg PO DAILY 01/23/21 History lisinopril 20 1 tablet PO DAILY 01/23/21
--- NOTE | 2023-03-19 15:05 | PM.SD2 ---
Same Day Admit/Disch: HPI History of Present Illness Chief complaint: Toxic Megacolon Narrative: Morena Schmitt is a 57 year old female abdominal pain EDHPI narrative: 57-year-old female with a history of hypertension and hyperlipidemia reports for evaluation of generalized abdominal pain that started 10 hours ago. Pt reports with her daughter who translates and assists with history. Pt ate red meat and beans 3 hours prior to the onset of symptoms. She reports the abdominal pain is sharp, intermittent and generalized. She reports having multiple episodes of diarrhea with blood on the toilet paper when she wipes, nausea, and multiple episodes of emesis with bright red blood. She is also complaining of low back pain since the onset of symptoms. Past abdominal surgeries include c section multiple years ago. She denies fever, body aches, chest pain, SOB, cough, congestion, urinary complaints. Patient had a CT scan of abdomen showed gaseous in colon most likely ileus, will keep patient NPO patient be seen by GI and further recommendation to follow. [facility] Past Medical History Medical History Migraine headache Surgical History Surgical History (Updated 03/19/23 @ 10:39 by Alisa Galvan) H/O section Family History Family History (System 03/19/23 @ 10:39 by Alisa Galvan) Other Alzheimer disease Diabetes mellitus Hypertension Social History Social History (System 03/19/23 @ 10:39 by Alisa Galvan) Social History: never smoker Smoking status: Never smoker Alcohol intake: never Substance use: never Lack of Transportation: No Lack of Food: Never True Current Housing: I Have Housing Concerned About Future Housing: No Difficulty Paying Gas/Electric Bills: Decline to Answer Difficulty Paying for Meds: Decline to Answer Currently Unemployed: Decline to Answer Education: Decline to Answer Difficulty w/ Childcare or Family Care: Decline to Answer Gender identity (if verbalized by the patient): Female Spiritual care concerns: No Same Day Admit/Disch: Med Pre-admit Medications Home Medications Medication Instructions Recorded Confirmed Type albuterol sulfate 90 mcg/actuation 2 puff inhalation QID PRN 11/21/19 Rx aerosol inhaler shortness of breath or wheezing #6.7 grams erenumab-aooe 140 mg/mL 140 mg subcut MONTHLY 01/23/21 History subcutaneous auto-injector (Aimovig Autoinjector) gabapentin 800 mg tablet 1,600 mg PO DAILY 01/23/21 History lisinopril 20 1 tablet PO DAILY 01/23/21 History mg-hydrochlorothiazide 25 mg tablet omeprazole 40 mg capsule,delayed 40 mg PO DAILY 01/23/21 History release pravastatin 40 mg tablet 40 mg PO DAILY 01/23/21 History sumatriptan succinate 50 mg tablet See Rx Instructions PO .COMPLEX 01/23/21 History topiramate 100 mg tablet 100 mg PO BID 01/23/21 History albuterol sulfate 90 mcg/actuation 1 puff inhalation Q4-6H PRN 04/19/21 03/19/23 History aerosol inhaler Shortness Of Breath gabapentin 800 mg tablet 800 mg PO BID 04/19/21 03/19/23 History lisinopril 20 mg tablet 20 mg PO DAILY 04/19/21 03/19/23 History omeprazole 40 mg capsule,delayed 40 mg PO DAILY 04/19/21 03/19/23 History release pravastatin 40 mg tablet 40 mg PO HS 04/19/21 03/19/23 History sumatriptan succinate 50 mg tablet 50 mg PO ONCE PRN Headache 04/19/21 03/19/23 History topiramate 100 mg tablet 100 mg PO BID 04/19/21 03/19/23 History lidocaine 5 % topical patch 1 patch topical DAILY #1 ea 05/15/21 03/19/23 Rx amoxicillin 875 mg-potassium 1 tablet PO Q12H #14 tabs 03/19/23 Rx clavulanate 125 mg tablet hydrochlorothiazide 25 mg tablet 25 mg PO DAILY 03/19/23 03/19/23 History tramadol 50 mg tablet 50 mg PO Q6-8H PRN Pain 03/19/23 03/19/23 History Exam Narrative: Morbidly obese Patient is comfortable, NAD HEENT: eyes are clear and none icteric LUNGS: Normal re
== END 2023-03-19 15:58 | disposition home or self-care (01) ==
LOC: ANHED 03-19 03:42 → ANH3MED 03-19 12:45
PROVIDERS: Emergency Medicine; Admitting Provider Family Medicine; Emergency Provider Physician Assistant; Visit Provider Family Medicine
DX: K56.7 Ileus, unspecified (principal); K92.0 Hematemesis; M54.50 Low back pain, unspecified; G43.909 Migraine, unspecified, not intractable, without status migrainosus; R00.0 Tachycardia, unspecified; I11.9 Hypertensive heart disease without heart failure; R06.82 Tachypnea, not elsewhere classified; J98.11 Atelectasis; K76.0 Fatty (change of) liver, not elsewhere classified; K57.30 Diverticulosis of large intestine without perforation or abscess without bleeding; D72.829 Elevated white blood cell count, unspecified; E78.5 Hyperlipidemia, unspecified; Z79.51 Long term (current) use of inhaled steroids; Z79.891 Long term (current) use of opiate analgesic; Z79.899 Other long term (current) drug therapy
CPT/HCPCS: 36415; 74177; 80053; 81001; 83605; 83690; 85025; 85610; 85730; 87040; 96361; 96365; 96366; 96375; 96376; 99285; A9270; C9113; G0378; G0379; J1170; J2270; J2405; J2543; J7030; Q9967